=== PATIENT | male | born 1955 | race Caucasian/White ===

== ENCOUNTER 2017-08-26 06:59 | Inpatient (IN) ==
[2017-08-20 17:35] LABS: Basophils # (Auto) 0.1 K/mcL (0.0-0.3); Basophils % (Auto) 0.6 % (0.0-2.0); Eosinophils # (Auto) 0.3 K/mcL (0.0-0.7); Granulocytes % (Auto) 68.3 % (38.0-78.0); Lymphocytes # (Auto) 2.4 K/mcL (1.5-4.8); Lymphocytes % (Auto) 22.5 % (15.5-49.0); Mean Cell Volume 91.3 fL (80.0-100.0); Mean Corpuscular HGB Conc 33.4 g/dL (31.0-36.0); Mean Corpuscular Hemoglobin 30.5 pg (26.0-34.0); Monocytes # (Auto) 0.6 K/mcL (0.1-0.9); Monocytes % (Auto) 5.6 % (1.0-12.0); Platelet Count 177 K/mcL (140-440); RBC 5.05 M/mcL (4.50-5.90); Red Cell Distribution Width 14.4 % (11.5-14.5)
[2017-08-20 17:46] LABS: Blood Urea Nitrogen 8 mg/dl (8-23)
[2017-08-20 18:49] LABS: Appearance,Urine CLEAR; Bilirubin,Urine NEG (NEG); Color,Urine STRAW; Glucose,Urine (UA) NEGATIVE (NEG); Leukocyte Esterase,Urine NEG /uL (NEG); Nitrate,Urine NEG (NEG); Protein,Urine NEG (NEG); Specific Gravity,Urine 1.005 (1.000-1.035); Urine Blood NEG mg/dL (<0.03); Urobilinogen,Urine NEG (NEG)
[2017-08-26] MEDS ORDERED: CELECOXIB 200 MG CAPSULE PO SCH (07:00)
[2017-08-26] MEDS ORDERED: ceFAZolin 1 GM VIAL IV SCH (07:00)
[2017-08-26] MEDS ORDERED: KETOROLAC 30 MG, ROPIVACAINE HCL/PF 49.5 ML, EPINEPHrine 0.5 MG, 0.9 % SODIUM CHLORIDE ... IJ SCH (07:00)
[2017-08-26] MEDS ORDERED: PREGABALIN 75 MG CAPSULE PO SCH (07:00)
[2017-08-26] MEDS ORDERED: BENZOCAINE/MENTHOL 1 LOZENGE PO PRN ×2 (10:58→11:06)
[2017-08-26] MEDS ORDERED: IPRATROPIUM/ALBUTEROL 3 ML AMPUL.NEB NEB PRN (10:58)
[2017-08-26] MEDS ORDERED: FLUMAZENIL 0.1 MG/ML ML IV PRN (10:58)
[2017-08-26] MEDS ORDERED: fentaNYL 100 MCG/2 ML VIAL IV PRN (10:58)
[2017-08-26] MEDS ORDERED: NALOXONE HCL 0.4 MG/ML VIAL IV PRN (10:58)
[2017-08-26] MEDS ORDERED: PROMETHAZINE 25 MG/ML VIAL IV PRN (10:58)
[2017-08-26] MEDS ORDERED: ONDANSETRON 4 MG/2 ML VIAL IV PRN ×2 (10:58→11:06)
[2017-08-26] MEDS ORDERED: diphenhydrAMINE 50 MG/ML VIAL IV PRN (10:58)
[2017-08-26] MEDS ORDERED: LACTATED RINGERS 250 ML IV PRN (10:58)
[2017-08-26] MEDS ORDERED: ACETAMINOPHEN 1,000 MG/100 ML BOTTLE IV ONE (10:58)
[2017-08-26] MEDS ORDERED: LACTATED RINGERS 1,000 ML IV SCH (11:00)
[2017-08-26] MEDS ORDERED: FLEETS ADULT ENEMA PR PRN (11:06)
[2017-08-26] MEDS ORDERED: TRANEXAMIC ACID 1,000 MG/10 ML VIAL IV ONE ×2 (11:06→11:09)
[2017-08-26] MEDS ORDERED: MAGNESIUM HYDROXIDE 30 ML ORAL.SUSP PO PRN ×2 (11:06→11:09)
[2017-08-26] MEDS ORDERED: HYDROmorphone 2 MG/ML SYRINGE IV PRN (11:06)
[2017-08-26] MEDS ORDERED: POLYETHYLENE GLYCOL 3350 17 GM PACKET PO PRN (11:06)
[2017-08-26] MEDS ORDERED: BISACODYL 10 MG SUPP.RECT PR PRN (11:06)
[2017-08-26] MEDS ORDERED: DEXTROSE 31 GM ORAL.SUSP PO PRN (11:06)
[2017-08-26] MEDS ORDERED: DEXTROSE 50% 50 ML VIAL IV PRN (11:06)
--- NOTE | 2017-08-26 11:06 | Brief Operative Note ---
Date of procedure: 08/26/17 Pre-op diagnosis: Left knee severe DJD Post-op diagnosis: same Procedure: Left robotic assisted total knee arthroplasty Grafts/Implants: Yes ([place] Triathlon CR 4 femur, 4 tibia, 9mm insert, 33 patella) Anesthesia: spinal, GLMA Findings: severe arthritis Complications: none Surgeon: Jose Luther Manager Resort: Chintan Soriano Estimated blood loss (cc): 30 Specimens Removed/Pathology: none sent Condition: stable Disposition: PACU
[2017-08-26] MEDS ORDERED: ePHEDrine 50 MG/ML AMPUL IV ONE (11:09)
[2017-08-26] MEDS ORDERED: PROPOFOL 200 MG/20 ML VIAL IV ONE (11:09)
[2017-08-26] MEDS ORDERED: DEXAMETHASONE 10 MG/ML VIAL IV ONE (11:09)
[2017-08-26] MEDS ORDERED: LIDOCAINE HCL/PF 100 MG/5 ML SYRINGE IV ONE (11:09)
[2017-08-26] MEDS ORDERED: ONDANSETRON 4 MG/2 ML VIAL IV ONE (11:09)
[2017-08-26] MEDS ORDERED: NICOTINE POLACRILEX 2 MG BC PRN (11:09)
[2017-08-26] MEDS ORDERED: MIDAZOLAM 5 MG/5 ML VIAL IV ONE (11:09)
[2017-08-26] MEDS ORDERED: INSULIN LISPRO 1 UNIT/0.01 ML UNIT SQ SCH (11:30)
--- NOTE | 2017-08-26 12:07 | XRay Report ---
CLINICAL INFORMATION: Postsurgical follow-up TECHNIQUE: AP, lateral, patellar views COMPARISON: None. FINDINGS: Status post left total knee arthroplasty. Femoral and tibial complements are in anatomic positions IMPRESSION: Previous left knee replacement. Interpreted and Authenticated by: Abhijit Sutton 08/26/17
[2017-08-26] MEDS: 0.9 % SODIUM CHLORIDE 1,000 ML IV SCH ×2 (12:27→21:41)
[2017-08-26] MEDS: 0.9 % SODIUM CHLORIDE 10 ML SYRINGE IV SCH ×2 (12:27→21:42)
[2017-08-26] MEDS: SPIRONOLACTONE 25 MG TABLET PO SCH (15:05)
[2017-08-26] MEDS: HYDROcodone/APAP 10/325MG TABLET PO PRN ×3 (15:05→23:18)
[2017-08-26] MEDS: POLYETHYLENE GLYCOL 3350 17 GM PACKET PO SCH ×2 (15:06→21:30)
[2017-08-26] MEDS: ceFAZolin 1 GM VIAL IV SCH (17:15)
[2017-08-26] MEDS ORDERED: QUEtiapine 100 MG TABLET PO SCH (21:00)
[2017-08-26] MEDS ORDERED: clonazePAM 0.5 MG TABLET PO PRN (21:00)
[2017-08-26] MEDS ORDERED: DOCUSATE SODIUM 100 MG CAPSULE PO SCH (21:00)
[2017-08-26] MEDS: ASPIRIN 325 MG ENTERIC COATED TABLET PO SCH (21:29)
[2017-08-26] MEDS: traZODone HCL 50 MG TABLET PO SCH (21:29)
[2017-08-26] MEDS: SENNOSIDES 1 TABLET PO SCH (21:29)
[2017-08-26] MEDS: QUEtiapine 100 MG TABLET PO SCH (21:30)
[2017-08-26] MEDS: LOSARTAN 25 MG TABLET PO SCH (21:30)
[2017-08-26] MEDS: DOCUSATE SODIUM 100 MG CAPSULE PO SCH (21:30)
[2017-08-26] MEDS: SIMVASTATIN 10 MG TABLET PO SCH (21:30)
[2017-08-27] MEDS: ceFAZolin 1 GM VIAL IV SCH (01:05)
[2017-08-27] MEDS: 0.9 % SODIUM CHLORIDE 10 ML SYRINGE IV SCH ×3 (05:06→20:36)
[2017-08-27] MEDS: HYDROcodone/APAP 10/325MG TABLET PO PRN ×4 (05:12→18:50)
[2017-08-27] MEDS: OMEPRAZOLE 20 MG CAPSULE PO SCH (07:36)
[2017-08-27] MEDS: SPIRONOLACTONE 25 MG TABLET PO SCH ×2 (07:36→16:35)
[2017-08-27] MEDS: 0.9 % SODIUM CHLORIDE 1,000 ML IV SCH ×2 (07:46→16:36)
--- NOTE | 2017-08-27 07:56 | Discharge Summary ---
Providers - Providers Patient information: Note initiated : 08/27/17 at 7:53 am Service Date, if different from initiated Date: [] Patient: Dino Mcelroy 61 y/o M admitted on 08/26/17 for Left Total Knee [place] Arthroplasty. Chief Complaint: [] Discharge date: 08/27/17 Hospitalization Hospital course: Pt was admitted for a TKA. He underwent the procedure on the day of admission and discharged on post-op day 1. He will f/u at [facility] in 2 weeks and call prior with any questions or concerns. Discharge diagnosis: L knee osetoarthrosis Exam - Exam Clean and dry: Yes Weight bearing status: as tolerated Ortho Discharge - TKA - Patient Instructions Diet: Regular Diet Activity: activity as tolerated Total Knee Protocol: For Total Knee: Start ROM NICOLA with stationary bike or rocking chair. Work on gaining full extension of knee. Posterior dislocation precautions provided. Hip abductor strengthening and gait training instructions provided. Apply Cryocuff as instructed. Dressing Care: May shower in 2 days - Follow Up Plan Disposition: Home, Self-Care Prognosis: Good Rehab Potential: Good Overall status at discharge: patient is progressing back to baseline - Orders For Discharge Prescriptions: Aspirin [Ecotrin] 325 mg PO BID #30 tab.ec HYDROcodone/APAP 10/325MG [[place] 10/325Mg] 1 - 2 tab PO Q4HP PRN #90 tab PRN Reason: Pain Level 3-6 Pending Studies Resuscitation Status Full Code Diet Regular Diet Start ThuAug 26 152 Hydrocodone Bitart/Acetaminophen ([place] 10/325mg) 0 tab PO Q4HP PRN PRN Reason: PAIN LEVEL 3-6 Last Admin: 08/27/17 05:12 Dose: 2 tab Admin: 08/26/17 23:18 Dose: 2 tab Admin: 08/26/17 19:14 Dose: 2 tab Admin: 08/26/17 15:05 Dose: 2 tab Aspirin (Ecotrin) 325 mg PO BID [facility] Last Admin: 08/26/17 21:29 Dose: 325 mg Docusate Sodium (Colace) 100 mg PO BID [facility] Last Admin: 08/26/17 21:30 Dose: 100 mg Sodium Chloride (Sodium Chloride 0.9%) 1,000 mls @ 100 mls/hr IV .Q10H [facility] Last Admin: 08/27/17 07:46 Dose: Infusion: 08/27/17 01:17 Dose: 0 mls/hr Admin: 08/26/17 21:41 Dose: Not Given Admin: 08/26/17 12:27 Dose: 100 mls/hr Losartan Potassium (Cozaar) 25 mg PO BID [facility] Last Admin: 08/26/17 21:30 Dose: 25 mg Omeprazole (Prilosec) 20 mg PO ACB [facility] Last Admin: 08/27/17 07:36 Dose: 20 mg Melatonin 3 Mg Tab 1 dose PO [facility] Last Admin: 08/26/17 21:35 Dose: Polyethylene Glycol (Miralax) 17 gm PO TID [facility] Last Admin: 08/26/17 21:30 Dose: 17 gm Admin: 08/26/17 15:06 Dose: 17 gm Quetiapine Fumarate (Seroquel) 300 mg PO [facility] Last Admin: 08/26/17 21:30 Dose: 300 mg Senna (Senokot) 2 tab PO [facility] Last Admin: 08/26/17 21:29 Dose: 2 tab Simvastatin (Zocor) 10 mg PO [facility] Last Admin: 08/26/17 21:30 Dose: 10 mg Sodium Chloride (Saline Flush) 10 ml IV Q8 [facility] Last Admin: 08/27/17 05:06 Dose: 10 ml Admin: 08/26/17 21:42 Dose: Not Given Admin: 08/26/17 12:27 Dose: Not Given Spironolactone (Aldactone) 25 mg PO BIDD [facility] Last Admin: 08/27/17 07:36 Dose: 25 mg Admin: 08/26/17 15:05 Dose: 25 mg Trazodone HCl (Desyrel) 200 mg PO [facility] Last Admin: 08/26/17 21:29 Dose: 200 mg Shift Summary 08/27/17 03:53 Shift Summary by Terrance Jackson VSCharlie on RA. Dressing to left knee CDI. Ambulates w/FWW and SBA. Pain controlled w /2 Norcos, has been requesting pain meds about every 4 hrs. Voiding per urinal and in BR. IV to left FA SL. AV boots in place. Uses IS w/reminders. Tolerating diet w/no complaints of N this shift. Extensive health hx. Lives in [place] in [place]. Very cooperative w/cares. Initialized on 08/27/17 03:53 - END OF NOTE
--- NOTE | 2017-08-27 08:26 | Operative Note ---
DATE OF OPERATION: 08/26/2017 PREOPERATIVE DIAGNOSIS: Left knee severe osteoarthritis. POSTOPERATIVE DIAGNOSIS: Left knee severe osteoarthritis. PROCEDURE PERFORMED: Left robotic-assisted total knee arthroplasty using a [place]rie Triathlon size 4 cruciate retaining femoral component, a size 4 tibial baseplate, a 9 mm X3 tibial insert with a 33 mm patellar button. SURGEON: Jose Luther M.D. [employer]UR[employer] OWNER: Sam Soriano PA-C. ANESTHESIA: Spinal plus general. DRAINS: None. SPECIMENS: Bone cuts, which were discarded. BLOOD LOSS: 30 mL. COMPLICATIONS: None. POSTOPERATIVE CONDITION: Stable. INDICATIONS FOR SURGERY: This is a 61-year-old male who has had longstanding worsening left knee pain. Radiographs showed severe [id number]-jk-[id number] osteoarthritis with fairly severe varus deformity. FINDINGS AT SURGERY: There was severe arthritis with severe varus deformity. Post implantation showed satisfactory limb alignment with stability and patellar tracking. PROCEDURE IN DETAIL: The patient had been seen preoperatively. Informed consent had been obtained after discussion of risks and benefits of surgery. Risks including, but not limited to, bleeding, possibly requiring transfusion; infection, possibly requiring implant removal and prolonged IV antibiotics; injury to nerves, blood vessels or other surrounding structures; anesthetic risks; incomplete or no resolution of symptoms; stiffness; pain; swelling; instability; DVT and pulmonary embolus risks; and the possibility of needing further revision surgery. He understood these risks and wished to proceed. Correct operative site was marked in preoperative holding and patient received spinal anesthesia. He was then taken to the operating room and LMA general anesthesia was given. The left lower extremity was then carefully prepped and draped in normal sterile fashion, and a time-out was performed verifying patient name, operative site, and plan. Esmarch was used to exsanguinate the extremity and tourniquet was inflated to 300 mmHg. Midline incision was made with a scalpel through skin and subcutaneous tissue and then a medial parapatellar arthrotomy made. Subperiosteal exposure was done of the anterior, medial, and proximal tibia after Irrisept had been irrigated and the medial parapatellar arthrotomy made. We then completed releasing the deep fibers of the MCL around the corner of the femur due to his severe varus deformity. We then did an exposure of the distal anterior cortex of the femur as well as a fairly aggressive synovectomy as he had severe synovitis going on. We excised the retropatellar fat pad and then excised the anterior horns of the menisci and transected the ACL, what was remaining of it. We then placed our femoral and tibial checkpoints. We made two stab incisions over the femur and two over the tibia and placed our pins for the arrays. Once this was completed, we then obtained the hip center of rotation, as well as double checked on our checkpoints and localizing the medial and lateral malleoli. Once this was completed, we then used the blue probe to do our mapping. Once this was completed, we removed osteophytes with rongeur and then did our flexion and extension gap balancing at about 10 degrees and 90. Due to his severe varus deformity, we ended up adding 2 degrees of varus on the tibia and 3 degrees of varus on the femur which nearly balanced the knee to within 1 mm throughout. We went ahead and input this into the computer and then using the robotic assistance we made our bone cuts. Once this was completed, we marked our tibial rotation, pinned our tibial trial into place and did our boss reamer and keel punch to prepare. We then placed the keeled tibial trial. The femur was elevated. A curved osteotome and then curved curet used to remove osteophytes from the posterior femur. We then impacted the femoral trial, lateralized this as bone coverage would allow. We pinned this into place and drilled our peg holes. We then trialed with a 9 insert. He was taken into extension and was nearly full extension. We then freehand resected the patella. We sized this to a 36. We then drilled our peg holes. Patellar trial was placed. A limited lateral facetectomy was performed. We checked our range of motion and patellar tracking which was acceptable. We then opened definitive implants. The trial implants were removed. Irrisept was irrigated. After a minute pulse lavage and then we cemented the tibia and femur. A 9 trial insert was placed. The knee was taken into extension and excess cement removed. The patella was then cemented. While cement was hardening, we filled the joint with Irrisept and then injected pain cocktail into the pericapsular and subcutaneous tissue. After cement had hardened, we flexed the knee up, did an inspection for any remaining cement and removed it. The 9 trial insert was removed. We just wanted to see what an 11 felt like. However, this was too tight to even get the polyethylene in so we went ahead and opened a 9. Irrisept was irrigated and then a 9 insert was impacted. We then pulse lavaged copiously with saline and the knee was placed in about 45 degrees of flexion. Prior to closure, we did go ahead and remove our checkpoints as well as the pins from the tibia and femur. We used #2 FiberWire interrupted iymoni-um-[id number] around the superior quadrant of the patella, a #1 Vicryl interrupted [id number] around the inferior quadrant, running #1 Vicryl for patellar tendon and quad tendon. Final Irrisept irrigation was done, after a minute final pulse lavage, and then 2-0 Monocryl subcutaneous and rosario for skin. Xeroform and sterile dressing were applied. Tourniquet was released. The patient was awakened, extubated, and transferred to recovery in stable condition. PATRICIO:[email or web address] Job ID: [id number] Doc ID: [id number] Jose Luther MD
[2017-08-27] MEDS: lamoTRIgine 100 MG TABLET PO SCH (09:12)
[2017-08-27] MEDS: VITAMIN D3 1,000 UNIT TABLET PO SCH (09:12)
[2017-08-27] MEDS: POLYETHYLENE GLYCOL 3350 17 GM PACKET PO SCH ×3 (09:12→20:33)
[2017-08-27] MEDS: LOSARTAN 25 MG TABLET PO SCH ×2 (09:13→20:31)
[2017-08-27] MEDS: DOCUSATE SODIUM 100 MG CAPSULE PO SCH ×2 (09:13→20:32)
[2017-08-27] MEDS: ASPIRIN 325 MG ENTERIC COATED TABLET PO SCH ×2 (09:13→20:31)
[2017-08-27] MEDS: ESCITALOPRAM 10 MG TABLET PO SCH (09:13)
[2017-08-27] MEDS: QUEtiapine 100 MG TABLET PO SCH ×3 (09:14→20:37)
[2017-08-27] MEDS: NYSTATIN CRM 1 DOSE TUBE TOPICAL SCH (09:16)
[2017-08-27] MEDS: traZODone HCL 50 MG TABLET PO SCH (20:30)
[2017-08-27] MEDS: SENNOSIDES 1 TABLET PO SCH (20:32)
[2017-08-27] MEDS: SIMVASTATIN 10 MG TABLET PO SCH (20:32)
[2017-08-28] MEDS: HYDROcodone/APAP 10/325MG TABLET PO PRN ×3 (01:24→10:32)
[2017-08-28] MEDS: 0.9 % SODIUM CHLORIDE 10 ML SYRINGE IV SCH (05:17)
[2017-08-28] MEDS: OMEPRAZOLE 20 MG CAPSULE PO SCH (08:12)
[2017-08-28] MEDS: SPIRONOLACTONE 25 MG TABLET PO SCH (08:12)
[2017-08-28] MEDS: lamoTRIgine 100 MG TABLET PO SCH (08:19)
[2017-08-28] MEDS: DOCUSATE SODIUM 100 MG CAPSULE PO SCH (08:19)
[2017-08-28] MEDS: ASPIRIN 325 MG ENTERIC COATED TABLET PO SCH (08:19)
[2017-08-28] MEDS: ESCITALOPRAM 10 MG TABLET PO SCH (08:19)
[2017-08-28] MEDS: LOSARTAN 25 MG TABLET PO SCH (08:19)
[2017-08-28] MEDS: QUEtiapine 100 MG TABLET PO SCH (08:24)
[2017-08-28] MEDS: NYSTATIN CRM 1 DOSE TUBE TOPICAL SCH (08:27)
[2017-08-28] MEDS: VITAMIN D3 1,000 UNIT TABLET PO SCH (08:33)
== END 2017-08-28 11:10 | disposition home or self-care (01) | DRG 470 ==
LOC: MEDSUR 06:59
PROVIDERS: ADMIT Orthopaedic Surgery; ATTEND Orthopaedic Surgery

== ENCOUNTER 2018-06-23 07:30 | Inpatient (IN) ==
[2018-06-14 15:56] LABS: Appearance,Urine CLEAR; Bilirubin,Urine NEG (NEG); Color,Urine STRAW; Glucose,Urine (UA) NEGATIVE (NEG); Leukocyte Esterase,Urine NEG /uL (NEG); Protein,Urine NEG (NEG); Urine Blood NEG mg/dL (<0.03); Urobilinogen,Urine NEG (NEG)
[2018-06-14 18:22] LABS: Basophils # (Auto) 0 K/mcL (0.0-0.3); Basophils % (Auto) 0.4 % (0.0-2.0); Eosinophils # (Auto) 0.3 K/mcL (0.0-0.7); Eosinophils % (Auto) 2.6 % (0.0-7.0); Granulocytes % (Auto) 69.8 % (38.0-78.0); Lymphocytes # (Auto) 1.9 K/mcL (1.5-4.8); Lymphocytes % (Auto) 18.8 % (15.5-49.0); Mean Cell Volume 89.7 fL (80.0-100.0); Mean Corpuscular HGB Conc 33.3 g/dL (31.0-36.0); Mean Corpuscular Hemoglobin 29.9 pg (26.0-34.0); Monocytes # (Auto) 0.9 K/mcL (0.1-0.9); Monocytes % (Auto) 8.4 % (1.0-12.0); Platelet Count 166 K/mcL (140-440); RBC 5.34 M/mcL (4.50-5.90); Red Cell Distribution Width 15.7 % (11.5-14.5)
[2018-06-14 18:28] LABS: Blood Urea Nitrogen 8 mg/dl (8-23)
[~2018-06-23 07:30] MED LIST: 0.9 % SODIUM CHLORIDE 9 ML, KETOROLAC 30 MG, ROPIVACAINE HCL/PF 49.5 ML, EPINEPHrine 0.... IJ SCH; CELECOXIB 200 MG CAPSULE PO SCH; PREGABALIN 75 MG CAPSULE PO SCH; ceFAZolin 1 GM VIAL IV SCH; oxyCODONE 10 MG TAB.ER.12H PO SCH
[2018-06-23] MEDS ORDERED: IPRATROPIUM/ALBUTEROL 3 ML AMPUL.NEB NEB ONE (14:45)
[2018-06-23] MEDS ORDERED: TRANEXAMIC ACID 1,000 MG/10 ML VIAL IV ONE (15:00)
[2018-06-23] MEDS ORDERED: GLYCOPYRROLATE 0.2 MG/ML VIAL IV ONE (15:00)
[2018-06-23] MEDS ORDERED: LIDOCAINE HCL/PF 100 MG/5 ML SYRINGE IV ONE (15:00)
[2018-06-23] MEDS ORDERED: ONDANSETRON 4 MG/2 ML VIAL IV ONE (15:00)
[2018-06-23] MEDS ORDERED: PHENYLEPHRINE 10 MG/ML VIAL IV ONE (15:00)
[2018-06-23] MEDS ORDERED: KETAMINE 100 MG/ML ML IV ONE (15:00)
[2018-06-23] MEDS ORDERED: MIDAZOLAM 5 MG/5 ML VIAL IV ONE (15:00)
[2018-06-23] MEDS ORDERED: ROPIVACAINE HCL/PF 20 ML VIAL IJ ONE (15:00)
[2018-06-23] MEDS ORDERED: PROPOFOL 200 MG/20 ML VIAL IV ONE (15:00)
[2018-06-23] MEDS ORDERED: DEXAMETHASONE 10 MG/ML VIAL IV ONE (15:00)
[2018-06-23] MEDS ORDERED: METHOCARBAMOL 1,000 MG/10 ML VIAL IV PRN (16:46)
[2018-06-23] MEDS ORDERED: BENZOCAINE/MENTHOL 1 LOZENGE PO PRN ×2 (16:46→16:54)
[2018-06-23] MEDS ORDERED: IPRATROPIUM/ALBUTEROL 3 ML AMPUL.NEB NEB PRN (16:46)
[2018-06-23] MEDS ORDERED: ONDANSETRON 4 MG/2 ML VIAL IV PRN ×2 (16:46→16:54)
[2018-06-23] MEDS ORDERED: ACETAMINOPHEN 1,000 MG/100 ML BOTTLE IV ONE (16:46)
[2018-06-23] MEDS ORDERED: NALOXONE HCL 0.4 MG/ML VIAL IV PRN (16:46)
[2018-06-23] MEDS ORDERED: fentaNYL 100 MCG/2 ML VIAL IV PRN (16:46)
[2018-06-23] MEDS ORDERED: FLUMAZENIL 0.1 MG/ML ML IV PRN (16:46)
[2018-06-23] MEDS ORDERED: LACTATED RINGERS 250 ML IV PRN (16:46)
[2018-06-23] MEDS ORDERED: ACETAMINOPHEN 325 MG TABLET PO PRN (16:54)
[2018-06-23] MEDS ORDERED: MAGNESIUM HYDROXIDE 30 ML ORAL.SUSP PO PRN ×2 (16:54→16:58)
[2018-06-23] MEDS ORDERED: METHOCARBAMOL 750 MG TABLET PO PRN (16:54)
[2018-06-23] MEDS ORDERED: TRANEXAMIC ACID 1,000 MG/10 ML VIAL IV SCH (16:54)
[2018-06-23] MEDS ORDERED: BISACODYL 10 MG SUPP.RECT PR PRN (16:54)
[2018-06-23] MEDS ORDERED: HYDROmorphone 2 MG/ML VIAL IV PRN (16:54)
[2018-06-23] MEDS ORDERED: FLEETS ADULT ENEMA PR PRN (16:54)
[2018-06-23] MEDS ORDERED: POLYETHYLENE GLYCOL 3350 17 GM PACKET PO PRN ×2 (16:54→16:58)
--- NOTE | 2018-06-23 16:54 | Brief Operative Note ---
Date of procedure: 06/23/18 Pre-op diagnosis: Right knee severe DJD Post-op diagnosis: same Procedure: Right robotic assisted total knee arthroplasty Grafts/Implants: Yes ([place] Triathlon PS 4 femur, 4 tibia, 9mm insert, 33 patella, 50 tib stem) Anesthesia: spinal, GLMA Findings: severe valgus deformity Complications: none Surgeon: Jose Luther Financial Assistance Specialist: Chintan Soriano Estimated blood loss (cc): 50 Specimens Removed/Pathology: none sent Condition: stable Disposition: PACU
[2018-06-23] MEDS ORDERED: GUM PO PRN (16:58)
[2018-06-23] MEDS ORDERED: ALBUTEROL SULFATE 1 PUFF INHALER INH PRN (16:58)
[2018-06-23] MEDS ORDERED: NICOTINE POLACRILEX 2 MG PO PRN (16:58)
[2018-06-23] MEDS ORDERED: NYSTATIN CRM 1 DOSE TUBE TOPICAL PRN (16:58)
[2018-06-23] MEDS ORDERED: LACTATED RINGERS 1,000 ML IV SCH (17:00)
[2018-06-23] MEDS ORDERED: NICOTINE 7 MG PATCH TOPICAL PRN (17:19)
--- NOTE | 2018-06-23 17:48 | XRay Report ---
CLINICAL INFORMATION: Postsurgical follow-up TECHNIQUE: AP, crosstable lateral, patellar view COMPARISON: None. FINDINGS: Status post right total knee arthroplasty. Prosthetic components are in anatomic positions. There is postsurgical soft tissue and intra-articular gas. There are anterior skin rosario IMPRESSION: Status post right total knee arthroplasty Interpreted and Authenticated by: Abhijit Sutton 06/23/18
[2018-06-23] MEDS: KETOROLAC 30 MG/ML VIAL IV SCH ×2 (19:53→23:55)
[2018-06-23] MEDS ORDERED: clonazePAM 0.5 MG TABLET PO PRN (21:00)
[2018-06-23] MEDS ORDERED: SIMVASTATIN 20 MG TABLET PO SCH (21:00)
[2018-06-23] MEDS ORDERED: SENNOSIDES 1 TABLET PO SCH (21:00)
[2018-06-23] MEDS ORDERED: traZODone HCL 100 MG TABLET PO SCH (21:00)
[2018-06-23] MEDS ORDERED: MELATONIN 3 MG TABLET PO SCH (21:00)
[2018-06-23] MEDS ORDERED: QUEtiapine 100 MG TABLET PO SCH (21:00)
[2018-06-23] MEDS ORDERED: DOCUSATE SODIUM 100 MG CAPSULE PO SCH (21:00)
[2018-06-23] MEDS: clonazePAM 0.5 MG TABLET PO SCH (21:14)
[2018-06-23] MEDS: LOSARTAN 25 MG TABLET PO SCH (21:15)
[2018-06-23] MEDS: DOCUSATE SODIUM 100 MG CAPSULE PO SCH (21:15)
[2018-06-23] MEDS: ASPIRIN 325 MG ENTERIC COATED TABLET PO SCH (21:16)
[2018-06-23] MEDS: LACTOBACILLUS 1 CAPSULE PO SCH (21:16)
[2018-06-23] MEDS: 0.9 % SODIUM CHLORIDE 1,000 ML IV SCH (22:49)
[2018-06-23] MEDS: 0.9 % SODIUM CHLORIDE 10 ML SYRINGE IV SCH (23:40)
[2018-06-23] MEDS: ceFAZolin 1 GM VIAL IV SCH (23:56)
[2018-06-24] MEDS: oxyCODONE HCL 5 MG TABLET PO PRN ×3 (04:14→13:00)
[2018-06-24] MEDS: 0.9 % SODIUM CHLORIDE 1,000 ML IV SCH ×2 (05:34→13:02)
[2018-06-24] MEDS: 0.9 % SODIUM CHLORIDE 10 ML SYRINGE IV SCH ×3 (06:24→13:02)
[2018-06-24] MEDS: KETOROLAC 30 MG/ML VIAL IV SCH ×2 (06:24→11:40)
[2018-06-24] MEDS: ceFAZolin 1 GM VIAL IV SCH (07:14)
[2018-06-24] MEDS ORDERED: OMEPRAZOLE 20 MG CAPSULE PO SCH (07:30)
[2018-06-24] MEDS ORDERED: SPIRONOLACTONE 25 MG TABLET PO SCH (08:00)
--- NOTE | 2018-06-24 08:34 | Discharge Summary ---
Providers - Providers Patient information: Note initiated : 06/24/18 at 7:41 am Service Date, if different from initiated Date: [] Patient: Dino Mcelroy 62 y/o M admitted on 06/23/18 for Right Robotic Total Knee Arythroplasty. Chief Complaint: [] Discharge date: 06/24/18 Hospitalization Hospital course: Pt was admitted for a TKA, pt underwent the procedure on the day of admission. Pt will attend PT at [facility]. Will take ASA for DVT prophylaxis. Will f/ u at [facility] in 2 weeks. Discharge diagnosis: R knee OA Exam - Exam Incision draining: Yes (Mild bloody drainage) Weight bearing status: as tolerated Ortho Discharge - TKA - Patient Instructions Diet: Regular Diet Activity: activity as tolerated Total Knee Protocol: For Total Knee: Start ROM NICOLA with stationary bike or rocking chair. Work on gaining full extension of knee. Posterior dislocation precautions provided. Hip abductor strengthening and gait training instructions provided. Apply Cryocuff as instructed. Dressing Care: May shower in 2 days - Follow Up Plan Disposition: Home, Self-Care Prognosis: Good Rehab Potential: Good Overall status at discharge: patient is progressing back to baseline - Orders For Discharge Prescriptions: oxyCODONE HCL [Roxicodone] 1 - 2 tab PO Q4-6HP PRN #90 tab PRN Reason: Pain Level 3-6 Pending Studies Resuscitation Status Full Code Diet Consistent Carbohydrate Diet Start ThuJun 23 1656 Aspirin (Ecotrin) 325 mg PO BID [facility] Last Admin: 06/23/18 21:16 Dose: 325 mg Clonazepam (Klonopin) 0.5 mg PO TID [facility] Last Admin: 06/23/18 21:14 Dose: 0.5 mg Docusate Sodium (Colace) 200 mg PO BID [facility] Last Admin: 06/23/18 21:15 Dose: 200 mg Sodium Chloride (Sodium Chloride 0.9%) 1,000 mls @ 100 mls/hr IV .Q10H [facility] Last Admin: 06/24/18 05:34 Dose: Not Given Admin: 06/23/18 22:49 Dose: 100 mls/hr Ketorolac Tromethamine (Toradol) 30 mg IV Q6 [facility] Stop: 06/25/18 12:01 Last Admin: 06/24/18 06:24 Dose: 30 mg Admin: 06/23/18 23:55 Dose: 30 mg Admin: 06/23/18 19:53 Dose: 30 mg Lactobacillus Rhamnosus (Culturelle) 1 cap PO TID [facility] Last Admin: 06/23/18 21:16 Dose: 1 cap Losartan Potassium (Cozaar) 25 mg PO BID [facility] Last Admin: 06/23/18 21:15 Dose: 25 mg Melatonin (Melatonin 3mg Tablet) 3 mg PO HS [facility] Last Admin: 06/23/18 21:13 Dose: 3 mg Omeprazole (Prilosec) 20 mg PO ACB [facility] Last Admin: 06/24/18 07:15 Dose: 20 mg Oxycodone HCl (Roxicodone) 0 mg PO Q4HP PRN PRN Reason: PAIN LEVEL 3-6 Last Admin: 06/24/18 04:14 Dose: 5 mg Lurasidone Hcl [ (Latuda] 80 Mg Tablet) 1 dose PO [facility] Last Admin: 06/23/18 21:18 Dose: Not Given Quetiapine Fumarate (Seroquel) 300 mg PO [facility] Last Admin: 06/23/18 21:11 Dose: 300 mg Senna (Senokot) 2 tab PO [facility] Last Admin: 06/23/18 21:16 Dose: 2 tab Simvastatin (Zocor) 10 mg PO [facility] Last Admin: 06/23/18 21:17 Dose: 10 mg Sodium Chloride (Saline Flush) 10 ml IV Q8 [facility] Last Admin: 06/24/18 06:50 Dose: Not Given Admin: 06/23/18 23:40 Dose: Not Given Trazodone HCl (Desyrel) 200 mg PO [facility] Last Admin: 06/23/18 23:40 Dose: Not Given Shift Summary 06/24/18 05:01 Shift Summary by Lavern Haider POD1, Right Robotic Total Knee Arthroplasty; pt has psychiatric hx, held Trazadone last night d/t effects of anesthesia; able to follow directions, AA&O x4; pain controlled with scheduled Toradol and ice therapy until this morning when he reported increase in pain in right upper thigh, gave prn PO oxy; reported numbness and tingling in b/l LE's, b/l LE warm with weak dorsal pedis pulse on right, normal dorsal pedis pulse in left foot, able to feel sensation throughout, good cap refill; pt is drinking fluids, IVF were maintained overnight, NS at 100mL/hr as pt PVR remained between 500 -600mL in spite of voids 350 mL and 450mL; pt was hungry last night wanting extra sandwich; OOB with FWW to BR with moderate 1 assist; left fa site with IVF continuing. Initialized on 06/24/18 05:01 - END OF NOTE
--- NOTE | 2018-06-24 08:46 | Operative Note ---
DATE OF OPERATION: 06/23/2018 PREOPERATIVE DIAGNOSIS: Right knee severe osteoarthritis. POSTOPERATIVE DIAGNOSIS: Right knee severe osteoarthritis. PROCEDURE PERFORMED: Right robotic-assisted total knee arthroplasty placing a Sherrie triathlon size 4 posterior stabilized femoral component, size 4 tibial baseplate, a 9 mm X3 tibial insert with a 33 mm patellar button. SURGEON: Jose Luther MD BOATBUILDER APPRENTICE WOOD: Sam Soriano PA-C. ANESTHESIA: Spinal plus general. DRAINS: None. SPECIMENS: None. COMPLICATIONS: None. POSTOPERATIVE CONDITION: Stable. INDICATIONS FOR SURGERY: This is a 62-year-old male who had a longstanding history of severe knee pain. Radiographs showed severe valgus deformity with hyns-ji-qqam osteoarthritis. FINDINGS AT SURGERY: As above. Post implantation showed good overall limb alignment with patellar tracking, and joint stability. PROCEDURE IN DETAIL: The patient had been seen preoperatively. Informed consent had been obtained after discussion of risks, benefits of surgery. Risks including, but not limited to, bleeding, possibly requiring transfusion; infection, possibly requiring implant removal and prolonged IV antibiotics; injury to nerves, blood vessels other surrounding structures; anesthetic risks; incomplete or no resolution of symptoms; stiffness; swelling; pain; instability; DVT and pulmonary embolus risks; and the possibility of needing further revision surgery. He understood these risks and wished to proceed. Correct operative site was marked and the patient was taken to the operating room. General anesthesia was induced after spinal was placed in preop. The right lower extremity was carefully prepped and draped in normal sterile fashion. A timeout was performed verifying patient name, operative site, and plan. Esmarch was used to exsanguinate the extremity and tourniquet was inflated. Midline incision was made with a scalpel through skin and subcutaneous tissue and hemostasis was obtained with Bovie cautery. IrriSept was irrigated and then a medial parapatellar arthrotomy made. Subperiosteal exposure was done of the anterior medial tibia, a limited degree. We then placed our femoral and tibial checkpoints. Two stab incisions were made over the tibia and two over the femur. We then placed bicortical pins and the arrays were connected. We did our hip center of rotation check and then green probe was used to locate the medial and lateral malleoli and double checks of the femoral and tibial checkpoints. Blue probe was used to do our mapping. Rongeur was used to remove osteophytes. We then checked our flexion, extension gaps. He was extremely tight laterally and loose medial. We ended up adjusting implants to get 18 mm gap medially in flexion and extension. However, we were down to 11 mm gap laterally in flexion. I went ahead and ended up placing the tibia and 3 degrees of valgus from the initial plan to get down to a 13 mm gap. We were 17 lateral in extension. We went ahead then and used the robotic arm to do our bone cuts. The tibia was then exposed and the 4 baseplate was pinned into place. We used the boss reamer and then the keel punch. The hard sclerotic bone laterally when we were malleting, there appeared to be a small crack in the tibia. Because of this, we chose to place a 50 mm stem. We went ahead and elevated the femur, used a curved osteotome and curet to remove osteophytes. Then, the box jig was pinned into place on the femur and we cut the box with the saw. We then removed this bone and then impacted our femoral trial. The knee was taken into extension and we did a pie-crusting of the IT band. This allowed us to get the [address], the knee was taken into extension. We measured about 9 to 10 degrees short of full extension. We went ahead and prepared the patella freehand technique first measuring the thickness of 23 mg. Post-resection was 12 mm. We sized this to a 33, which was medialized maximally and then holes were drilled. Trial was placed and then a limited lateral facetectomy performed. We checked our patellar tracking, which was good, so implants were opened other than the insert. We removed trial implants. The joint was irrigated with IrriSept. Antibiotic cement was mixed. We then irrigated with saline after a minute and then used CO2 gun to clean and dry the cancellous bone surfaces. We did make small drill holes in the lateral tibial plateau where the sclerotic bone was to aid in cement interdigitation. We then cemented the tibia. Excess cement was removed. We cemented the femur. Excess cement was removed and then the 9 insert trial placed and the knee was taken into extension. The patellar button was then cemented. We removed our checkpoints. The joint was filled with IrriSept and then we injected pain cocktail into the pericapsular and subcutaneous tissues. Once cement had fully hardened, we irrigated with saline again, flexed the knee up. We removed the trial insert and did a final inspection and removal of cement. We then injected the posterior capsule with pain cocktail. We irrigated the tray with IrriSept and then impacted the definitive 9 mm insert. The knee was then taken into 45 degrees of flexion, irrigated with saline. We then used interrupted ixfaoo-zz-rjijr #2 FiberWire on the superior quadrant of the patella, interrupted xkosoo-tn-ckuwm #1 Vicryls around the inferior quadrant. Of note, prior to closure, we did do a synovectomy as he had fairly severe synovitis in the suprapatellar pouch. Once we closed around the patellar we used running #1 Vicryl for patellar tendon and quad tendon. Final IrriSept irrigation was done, final pulse lavage a minute later and then 2-0 Monocryl for subcutaneous and rosario for skin. Xeroform sterile dressings were applied. Tourniquet was released. The patient was awakened and transferred to recovery in stable condition. BJB:saad Job ID: [id number] Doc ID: [id number] Jose Luther MD
[2018-06-24] MEDS ORDERED: VITAMIN D3 1,000 UNIT TABLET PO SCH (09:00)
[2018-06-24] MEDS: DOCUSATE SODIUM 100 MG CAPSULE PO SCH (09:00)
[2018-06-24] MEDS ORDERED: ESCITALOPRAM 10 MG TABLET PO SCH (09:00)
[2018-06-24] MEDS: ASPIRIN 325 MG ENTERIC COATED TABLET PO SCH (09:00)
[2018-06-24] MEDS: LOSARTAN 25 MG TABLET PO SCH (09:00)
[2018-06-24] MEDS ORDERED: Lurasidone Hcl [Latuda] 60 MG Tablet PO SCH (09:00)
[2018-06-24] MEDS ORDERED: lamoTRIgine 100 MG TABLET PO SCH (09:00)
[2018-06-24] MEDS: LACTOBACILLUS 1 CAPSULE PO SCH ×2 (09:01→14:25)
[2018-06-24] MEDS: QUEtiapine 100 MG TABLET PO SCH ×2 (09:01→14:25)
[2018-06-24] MEDS: clonazePAM 0.5 MG TABLET PO SCH ×2 (09:02→14:25)
== END 2018-06-24 16:30 | disposition home or self-care (01) | DRG 470 ==
LOC: MEDSUR 10:53
PROVIDERS: ADMIT Orthopaedic Surgery; ATTEND Orthopaedic Surgery
CPT/HCPCS: 62322; 97162; A6248; C1713; C1776; J0131; J0690; J1100; J1885; J2001; J2250; J2370; J2405; J2795; J7030; J7040; J7120; J7620; J7620-GY